=== PATIENT | male | born 1955 | race Caucasian/White ===

== ENCOUNTER → 2017-12-24 | Outpatient (CLI) | payer OTHER ==
--- NOTE | 2017-12-24 17:03 | DIAGNOSTIC IMAGING REPORT ---
ULTRASOUND R VENOUS DOPP LOWER EXT UNILAT CLINICAL HISTORY: Right lower extremity pain and swelling COMPARISON STUDY: No previous studies for comparison. FINDINGS: Real-time and color flow Doppler imaging were performed. Flow was seen within the femoral, popliteal and calf veins with no intraluminal thrombus demonstrated. The saphenous vein is patent. IMPRESSION: No evidence of right lower extremity DVT. Electronically signed by: Kiko Mckeon M.D. 12/24/2017 5:01 PM Dictated Date/Time: 12/24/2017 5:01 PM
== END | disposition home or self-care (01) ==
LOC: C.ULTR 16:23
PROVIDERS: ATTEND Family Medicine
DX: S80.11XA Contusion of right lower leg, initial encounter (principal); W11.XXXA Fall on and from ladder, initial encounter